=== PATIENT | male | born 1950 | race Caucasian/White ===

== ENCOUNTER → 2017-04-01 | Outpatient (CLI) | payer OTHER | END | disposition home or self-care (01) | LOC: C.PATHSPEC 17:04 | PROVIDERS: ATTEND Nurse Practitioner Adult Health | DX: M19.90 Unspecified osteoarthritis, unspecified site (principal) ==

== ENCOUNTER → 2017-10-14 | Day surgery (SDC) | payer OTHER ==
[2017-10-02 09:44] VITALS: Ht 177.8 cm; Wt 116.6 kg
--- NOTE | 2017-10-02 10:31 | PAT Medication Instructions ---
Service Date Oct 02, 2017. Current Home Medication List Bumetanide (Bumex), 2 MG PO QAM Hydrocodone/Acetaminophen 5MG/325MG ([place] 5MG/325MG), 1-2 TABLETS PO UD PRN for Pain Ibuprofen (Motrin), 800 MG PO UD PRN for Pain Losartan Potassium (Cozaar), Unknown Dose PO QAM Methylprednisolone (Methylprednisolone), 1 TAB PO QAM Multivitamin (Multivitamin), 1 TAB PO QAM Nystatin (Nystatin Cream), Unknown Dose TOP QPM Nystatin (Topical) (Nystatin), Unknown Dose TOP QAM Omeprazole (Prilosec), 20 MG PO QAM Oxymetazoline Hcl (Nasal [place]), Unknown Dose JOSHUA UD Simvastatin (Zocor), 40 MG PO HS Tamsulosin Hcl (Flomax), 0.4 MG PO BID Medication Instructions For Your Scheduled Surgery -Follow your surgeon's instructions for: Ibuprofen (Motrin), 800 MG PO UD PRN for Pain - Hold the following medications 24 hours prior to surgery: Nystatin (Nystatin Cream), Unknown Dose TOP QPM Nystatin (Topical) (Nystatin), Unknown Dose TOP QAM - Hold the following medications the morning of surgery: Bumetanide (Bumex), 2 MG PO QAM Losartan Potassium (Cozaar), Unknown Dose PO QAM Multivitamin (Multivitamin), 1 TAB PO QAM Tamsulosin Hcl (Flomax), 0.4 MG PO BID - Take the following medications the morning of surgery with a sip of water: Hydrocodone/Acetaminophen 5MG/325MG ([place] 5MG/325MG), 1-2 TABLETS PO UD PRN ( if needed, can be taken up to four hours before surgery) Methylprednisolone (Methylprednisolone), 1 TAB PO QAM Oxymetazoline Hcl (Nasal [place]), Unknown Dose JOSHUA UD Omeprazole (Prilosec), 20 MG PO QAM - Take the following medications as scheduled the night before surgery: Hydrocodone/Acetaminophen 5MG/325MG ([place] 5MG/325MG), 1-2 TABLETS PO UD PRN ( if needed) Oxymetazoline Hcl (Nasal [place]), Unknown Dose JOSHUA UD Simvastatin (Zocor), 40 MG PO HS Tamsulosin Hcl (Flomax), 0.4 MG PO BID If you have any questions please call us at [phone] or [phone] or [phone]
--- NOTE | 2017-10-02 11:16 | DIAGNOSTIC IMAGING REPORT ---
Lateral view of the cervical spine in flexion and extension. CLINICAL HISTORY: Rheumatoid arthritis. Preoperative study. COMPARISON STUDY: No previous studies for comparison. FINDINGS: There are multilevel degenerative changes. No acute fractures are visualized. There is 3.8 mm of retrolisthesis of C3 on C4 in flexion. This measures 4.9 mm in neutral position, and 5 mm in extension. IMPRESSION: Degenerative changes with retrolisthesis of C3 on C4. No major instability on flexion or extension. Electronically signed by: Weston Schmitz M.D. 10/02/2017 11:15 AM Dictated Date/Time: 10/02/2017 11:13 AM
--- NOTE | 2017-10-02 11:33 | DIAGNOSTIC IMAGING REPORT ---
CHEST 2 VIEWS ROUTINE HISTORY: Preop. COMPARISON: None. FINDINGS: The lungs are clear. Cardiac silhouette is normal in size. No pleural effusions. No pneumothorax. IMPRESSION: No acute process. Electronically signed by: John De Leon M.D. 10/02/2017 11:31 AM Dictated Date/Time: 10/02/2017 11:16 AM
[2017-10-02 13:20] LABS: BASO % 0.8 %; BASO ABS # 0.07 K/uL (0-0.2); EOS % 0.8 %; EOS ABS # 0.07 K/uL (0-0.5); HEMATOCRIT 47.3 % (42-52); HEMOGLOBIN 16.3 g/dL (14.0-18.0); IG# 0.02 K/uL (0.00-0.02); LYMPH % 20.6 %; LYMPH ABS # 1.72 K/uL (1.2-3.4); MEAN CELL VOLUME 97.7 fL (80-100); MEAN CORPUSCULAR HEMOGLOBIN 33.7 pg (25-34); MEAN CORPUSCULAR HGB CONC 34.5 g/dl (32-36); MEAN PLATELET VOLUME 10.6 fL (7.4-10.4); MONO % 9.8 %; MONO ABS # 0.82 K/uL (0.11-0.59); NEUT % 67.8 %; NEUT ABS # 5.65 K/uL (1.4-6.5); PLATELET COUNT 197 K/uL (130-400); RED CELL DISTRIBUTION WIDTH CV 13.5 % (11.5-14.5); WHITE BLOOD COUNT 8.35 K/uL (4.8-10.8)
[2017-10-02 14:40] LABS: CREATININE 1.35 mg/dl (0.60-1.40)
[~2017-10-14] VITALS: Ht 177.8 cm; Wt 116.6 kg
[~2017-10-14] MED LIST: ATROPINE SULFATE 0.1 MG/ML 5ML SYR IV PRN; BELLADONNA/OPIUM SUPP 60 MG SUPP PR ONE; BUME2TAB3 PO; CIPR-255 PO; CIPROFLOXACIN / D5W 400 MG IV SCH; DEXAMETHASONE SOD INJ 4 MG/ML VIAL ONE; EpHEDrine SULFATE INJ 50 MG/ML AMP IV PRN; FENTANYL CITRATE INJ 50 MCG/1 ML 2 ML VIAL ONE; HYDR-5688 PO; IBUP-1428 PO; LACTATED RINGER'S 1000ML 1,000 ML IV SCH; LIDOCAINE HCL 2% 2 ML VIAL (20MG/ML) ONE; LOSA1TAB PO; MDR4 PO; MIDAZOLAM HCL 1 MG/ML 2ML VIAL ONE; MULT-506 PO; NYSCR30 TOP; NYST100033 TOP; ONDANSETRON INJ 2 MG/ML 2 ML VIAL IV PRN; ONDANSETRON INJ 2 MG/ML 2 ML VIAL ONE; OXYC-57 PO; OXYCODONE/ACETAMINOPHEN 5-325 TAB PO PRN; OXYM0.0592 NAE; PHEN-775 PO; PHENAZOPYRIDINE HCL 200 MG TAB PO PRN; PRLSR20 PO; PROPOFOL IV EMULSION 10 MG/ML 20 ML VIAL IV ONE; SIMV40TA2 PO; TAMS0.4C38 PO
[2017-10-14 07:32] VITALS: BP 158/88; PULSE 75; TEMP 36.4; O2SAT 95
--- NOTE | 2017-10-14 07:42 | History & Physical Bridge Note ---
H&P Re-Evaluation Bridge Note: I have examined the patient, reviewed the History & Physical and in the interval since the performance of the History & Physical I have noted the following changes of clinical significance: No changes noted
--- NOTE | 2017-10-14 11:02 | [facility] Operative Report ---
Operative Report Operative Date Oct 14, 2017. Pre-Operative Diagnosis Benign Prostate Hypertrophy with Obstruction Post-Operative Diagnosis Benign Prostate Hypertrophy with Obstruction Procedure(s) Performed Cystoscopy, Greenlight Vaporization of the Prostate Surgeon Dr. Leodan Braga Data Warehouse Specialist Surgeon(s) none Estimated Blood Loss 0 ml Findings 93K J of energy used, mostly at 140 W. Specimens none per surgeon Drains 20 fr 10 cc H2O lynn Anesthesia Type General Complication(s) none Disposition yes Recovery Room / PACU Indications Patient is a 67-year-old male with refractory voiding symptoms found to have BPH on office cystoscopy. Please see H&P for further details. He is decided upon a greenlight vaporization of his prostate gland manage his disease. Intravenous ciprofloxacin was provided for antibiotic coverage and SCDs used for DVT prophylaxis. Description of Procedure Patient was properly identified and brought into the operative suite after identification for proper consent of the chart. General anesthesia with laryngeal mask was initiated patient was prepped and draped in standard fashion for this procedure. Full timeout procedure was followed. Greenlight laser resectoscope was introduced into the bladder under direct visualization using a visual obturator. Prostate was noted to have lateral lobe hypertrophy as previously demonstrated as well as an elevated bladder neck. Ureteral orifices were visualized within the bladder noted to be adequately removed from the bladder neck. Grade 2 trabeculation of the bladder was present. No intravesical papillary masses, lesions or mucosal changes were noted. Using a side fire greenlight laser fiber between 80 and 140 W circumferential vaporization of the prostate was performed. Relaxing incisions were made at the 5 and 7 o'clock position with care being taken to avoid any injury to the ureteral orifice ease to avoid future bladder neck contracture. Bladder neck was dropped down to the level of the trigone and excellent hemostasis was noted throughout the case. Dissection was carried up to the level of the verumontanum with care being taken to avoid any distal vaporization. After approximately 93,000 J of energy were used the prostate was noted to be visually unobstructive with excellent hemostasis. An open bladder neck was noted. Bladder was partially distended and resectoscope was removed. 20 [place] Lynn catheter was placed with return of clear irrigant and 10 cc of sterile water in the balloon. Belladonna and opium suppository was provided for additional postoperative analgesia and anesthesia was reversed. Patient was transferred to the recovery room in stable condition. Follow-up care: Patient will be discharged home with Lynn catheter in place after recovery. Prescription for ciprofloxacin, Percocet and Pyridium are provided for postoperative coverage. Outpatient appointments are confirmed. Patient instructed to contact our service should he note any fevers, chills, nausea, vomiting or other difficulties in the postoperative period. I attest to the content of the Intraoperative Record and any orders documented therein. Any exceptions are noted below.
--- NOTE | 2017-10-14 11:05 | Discharge Instructions ---
Discharge Instructions Date of Service Oct 14, 2017. Admission Reason for Admission: Benign Prostatic Hyperplasia Discharge Discharge Diagnosis / Problem: BPH s/p GLTURP Discharge Goals Goal(s): Improve function, Improve disease control, Therapeutic intervention Activity Recommendations Activity Limitations: as noted below Lifting Limitations: no more than 25 pounds, gradually increase as tolerated Exercise/Sports Limitations: rest today, gradually increase as tolerated May Resume Sexual Activity: after follow-up appointment Shower/Bathe: tomorrow (no tub bath with lynn in place) . Instructions / Follow-Up Instructions / Follow-Up As scheduled in office for removal of lynn catheter and for postoperative visit. Current Hospital Diet Patient's current hospital diet: Discharge Diet Recommended Diet: Regular Diet (good fluid intake) Procedures Procedures Performed: Cystoscopy, Greenlight Vaporization of the Prostate Pending Studies Studies pending at discharge: no Medical Emergencies . Who to Call and When: Medical Emergencies: If at any time you feel your situation is an emergency, please call 911 immediately. . Non-Emergent Contact Non-Emergency issues call your: Urologist Call Non-Emergent contact if: you have a fever, temperature is above 101, your pain is not controlled, your pain is worsening, your pain is unusual for you, your pain is concerning you, you have any medication questions . . "Provider Documentation" section prepared by Leodan Braga. . [place] Drug Monitoring Program Search Results: patient reviewed within database, see additional documentation (last Rx identified in May 2017 - Rx for postop analgesia provided.)
[2017-10-14] MEDS: FENTANYL CITRATE INJ 50 MCG/1 ML 2 ML VIAL IV PRN ×4 (11:22→11:37)
[2017-10-14 12:00] VITALS: BP 137/91; PULSE 77; TEMP 36.3; O2SAT 95
[2017-10-14 12:30] VITALS: BP 145/92; PULSE 83; TEMP 36.7; O2SAT 95
--- NOTE | 2017-10-14 12:50 | Anesthesiology Progress Note ---
Anesthesia Post Op Note Date & Time Oct 14, 2017 at 12:50 Vital Signs Pain Intensity: 4 Vital Signs Past 12 Hours Date Time Temp Pulse Resp B/P (MAP) Pulse Ox O2 Delivery O2 Flow Rate FiO2 10/14/17 12:00 36.3 77 20 137/91 95 Room Air 10/14/17 11:51 139/89 10/14/17 11:48 75 15 10/14/17 11:48 69 15 87 10/14/17 11:46 152/79 10/14/17 11:45 36.2 67 16 139/89 (109) 96 Room Air 10/14/17 11:43 77 18 96 10/14/17 11:43 72 18 10/14/17 11:42 74 13 97 10/14/17 11:42 74 13 10/14/17 11:41 135/80 10/14/17 11:40 73 15 10/14/17 11:40 73 15 95 10/14/17 11:36 120/75 10/14/17 11:35 77 7 88 10/14/17 11:35 76 7 10/14/17 11:31 106/77 10/14/17 11:30 75 17 10/14/17 11:30 74 17 96 10/14/17 11:26 120/79 10/14/17 11:25 72 17 99 10/14/17 11:25 75 17 10/14/17 11:21 126/91 10/14/17 11:20 74 17 98 10/14/17 11:20 72 17 10/14/17 11:16 140/80 10/14/17 11:15 70 9 100 10/14/17 11:15 72 9 10/14/17 11:11 135/97 10/14/17 11:10 75 15 10/14/17 11:10 36.2 73 16 135/97 (102) 98 Oxymask 10 10/14/17 11:10 72 15 98 10/14/17 07:32 36.4 75 20 158/88 (111) 95 Room Air Notes Mental Status: alert / awake / arousable, participated in evaluation Pt Amnestic to Procedure: Yes Nausea / Vomiting: adequately controlled Pain: adequately controlled Airway Patency, RR, SpO2: stable & adequate BP & HR: stable & adequate Hydration State: stable & adequate Anesthetic Complications: no major complications apparent
[2017-10-14 13:00] VITALS: BP 142/84; PULSE 76; TEMP 36.9; O2SAT 96
== END | disposition home or self-care (01) ==
LOC: C.ACU 07:05
PROVIDERS: ATTEND Urology
DX: N40.1 Benign prostatic hyperplasia with lower urinary tract symptoms (principal); N45.1 Epididymitis; R10.9 Unspecified abdominal pain; M19.90 Unspecified osteoarthritis, unspecified site; M06.9 Rheumatoid arthritis, unspecified; K21.9 Gastro-esophageal reflux disease without esophagitis; E66.9 Obesity, unspecified; E78.5 Hyperlipidemia, unspecified; I10 Essential (primary) hypertension; Z87.19 Personal history of other diseases of the digestive system; Z87.39 Personal history of other diseases of the musculoskeletal system and connective tissue; Z87.442 Personal history of urinary calculi; Z90.49 Acquired absence of other specified parts of digestive tract; Z87.891 Personal history of nicotine dependence; Z88.2 Allergy status to sulfonamides; Z92.241 Personal history of systemic steroid therapy; F17.200 Nicotine dependence, unspecified, uncomplicated; K76.0 Fatty (change of) liver, not elsewhere classified

== ENCOUNTER → 2017-10-17 | Outpatient (CLI) | payer OTHER ==
[~2017-10-17] MED LIST changes: -ATROPINE SULFATE 0.1 MG/ML 5ML SYR IV PRN; -BELLADONNA/OPIUM SUPP 60 MG SUPP PR ONE; -CIPROFLOXACIN / D5W 400 MG IV SCH; -DEXAMETHASONE SOD INJ 4 MG/ML VIAL ONE; -EpHEDrine SULFATE INJ 50 MG/ML AMP IV PRN; -FENTANYL CITRATE INJ 50 MCG/1 ML 2 ML VIAL ONE; -LACTATED RINGER'S 1000ML 1,000 ML IV SCH; -LIDOCAINE HCL 2% 2 ML VIAL (20MG/ML) ONE; -MIDAZOLAM HCL 1 MG/ML 2ML VIAL ONE; -ONDANSETRON INJ 2 MG/ML 2 ML VIAL IV PRN; -ONDANSETRON INJ 2 MG/ML 2 ML VIAL ONE; -OXYCODONE/ACETAMINOPHEN 5-325 TAB PO PRN; -PHENAZOPYRIDINE HCL 200 MG TAB PO PRN; -PROPOFOL IV EMULSION 10 MG/ML 20 ML VIAL IV ONE
== END | disposition home or self-care (01) ==
LOC: C.LABSPEC 15:31
PROVIDERS: ATTEND Urology
DX: N40.1 Benign prostatic hyperplasia with lower urinary tract symptoms (principal); M54.5 Low back pain; N45.2 Orchitis; R10.9 Unspecified abdominal pain